=== PATIENT | female | born 1985 | race Caucasian/White ===

== ENCOUNTER 2022-09-14 17:40 | Emergency (ER) | payer MEDICAID ==
[~2022-09-14] VITALS: Ht 154.9 cm; Wt 137.0 kg
[~2022-09-14 17:40] MED LIST: PREN-127 PO
[2022-09-14] MEDS ORDERED: ACETAMINOPHEN 325MG TABLET PO ONE (18:45)
[2022-09-14] MEDS ORDERED: TOPUD MT (19:47)
[2022-09-14] MEDS ORDERED: IBUPROFEN 400MG TABLET PO ONE (20:00)
[2022-09-14 20:04] VITALS: BP 116/83
== END 2022-09-14 20:15 | disposition home or self-care (01) ==
LOC: ER 18:56
DX: M79.641 Pain in right hand (principal); F41.9 Anxiety disorder, unspecified; F32.9 Major depressive disorder, single episode, unspecified; Z98.51 Tubal ligation status
CPT/HCPCS: 73130; 99283